=== PATIENT | female | born 1965 | race Caucasian/White ===

== ENCOUNTER 2025-08-06 07:55 | Emergency (ER) | payer OTHER ==
[~2025-08-06] VITALS: Ht 157.5 cm; Wt 65.4 kg
[2025-08-06] MEDS: ketorolac trometh 15mg/ml vial 15 MG/ML ML IM ONE (08:21)
--- NOTE | 2025-08-06 08:38 | Physician Documentation ---
History of Present Illness General Chief Complaint: Wrist pain Stated Complaint: FALL/WRIST PAIN Time Seen by MD: 08:33 History of Present Illness Initial Comments The patient is a 59-year-old female who states she was hanging up a bird feeder and she fell off a retaining wall breaking her fall with a right wrist and she presents with right wrist pain and deformity. Patient states her pain is 10/10. Patient states the pain is sharp. She denies any numbness or weakness to the distal hand. Patient denies any and all other injury. Patient's symptoms are moderate persistent. Medication Reconciliation Allergies: Coded Allergies: hydrocodone (Verified Allergy, Unknown, THROWING UP, 08/06/25) oxycodone (Verified Allergy, Unknown, THROWING UP, 08/06/25) Uncoded Allergies: STEROIDS (Allergy, Unknown, RASH AND ITCHY, 08/06/25) ALLERGY DOC TESTED Scheduled PRN Tramadol HCl (Tramadol HCl), 1 TAB PO Q6H PRN PRN for pain Past Medical History Past Medical History: No Pertinent History Review of Systems All Other Systems at this time: Reviewed and Negative Physical Exam Physical Exam Vital Signs: Temperature: 98.3, Source: Temporal, Heart Rate: 73, Respiratory Rate: 16, BP: 138/67, Pulse Oximetry: 96, Weight: 65.400 Oxygen Flow Rate: 0 Physical Exam VITALS: Reviewed and as above. GENERAL: Alert, no apparent distress. HEENT: Normocephalic, atraumatic, PERRL, EOMI, dry mucosa, no erythema RESPIRATORY: Lungs clear, normal breath sounds, no respiratory distress. CHEST: No accessory muscle use, no retractions CV: Regular rate, rhythm, no edema, no murmur, No: JVD GI: Soft, non-tender, bowels sounds present, no rebound, guarding, or rigidity BACK: No CVA tenderness, or swelling MUSCULOSKELETAL: Patient has a dorsal deformity of the distal forearm at the right wrist the hand is sensate and warm to touch. Her swelling and tenderness over the right wrist SKIN: Warm and dry, no rash NEURO: Oriented x4, No motor or sensory deficit PSYCH: Normal mood and affect, no agitation Progress Results/Orders Results/Orders Orders - CARMINE CEE MD Wrist, Complete (3vw Min) (08/06/25 08:15) Wrist,Limited (Ap/Lat) (08/06/25 ) Wrist,Limited (Ap/Lat) (08/06/25 12:06) Completed Orders - OHLFS,CARMINE Munoz MD Wrist, Complete (3vw Min) (08/06/25 08:15) Acetaminophen 325mg Tablet (Tylenol Tabl (08/06/25 08:15) Ketorolac Trometh 15mg/Ml Vial (Toradol (08/06/25 08:15) Propofol Inj (Diprivan Inj) (08/06/25 09:10) Ondansetron Inj. (Zofran 4mg/2ml Vial) (08/06/25 09:45) Wrist,Limited (Ap/Lat) (08/06/25 ) Tramadol Tablet (Ultram Tablet) (08/06/25 10:20) Tramadol Tablet (Ultram Tablet) (08/06/25 10:35) Lidocaine 1% W/Epi 1:100,000 (Xylocaine (08/06/25 10:50) Ondansetron Inj. (Zofran 4mg/2ml Vial) (08/06/25 11:41) Ondansetron Inj. (Zofran 4mg/2ml Vial) (08/06/25 11:45) Normal Saline 1000ml (0.9% Sodium Chlori (08/06/25 11:45) Wrist,Limited (Ap/Lat) (08/06/25 12:06) Vital Signs 08/06/25 08/06/25 08/06/25 08/06/25 08:07 08:21 08:35 09:57 Temp 98.3 Pulse 73 75 Resp 16 16 18 B/P (MAP) 138/67 Pulse Ox 96 97 O2 Delivery Nasal Cannula* O2 Flow Rate 0 2 FiO2 28 08/06/25 08/06/25 08/06/25 08/06/25 09:59 10:00 10:05 10:09 Pulse 85 79 77 Resp 18 24 13 24 B/P (MAP) 175/90 (118) 173/84 175/90 173/84 (113) Pulse Ox 96 96 96 O2 Delivery Nasal Cannula Room Air O2 Flow Rate 2.0 08/06/25 08/06/25 08/06/25 08/06/25 10:10 10:14 10:15 10:19 Pulse 74 85 72 72 Resp 18 13 14 10 B/P (MAP) 137/80 155/70 137/80 (99) Pulse Ox 97 97 94 96 O2 Delivery Room Air Room Air 08/06/25 08/06/25 08/06/25 08/06/25 10:20 10:24 10:25 10:28 Pulse 77 72 75 Resp 18 11 17 18 B/P (MAP) 150/69 159/82 (107) 152/98 Pulse Ox 98 99 97 O2 Delivery Room Air Room Air 08/06/25 08/06/25 08/06/25 08/06/25 10:28 10:28 10:29 10:31 Pulse 80 79 Resp 16 18 25 18 B/P (MAP) 157/79 (105) Pulse Ox 97 98 O2 Delivery Room Air 08/06/25 08/06/25 08/06/25 08/06/25 10:31 10:34 10:39 10:44 Pulse 20 71 69 73 Resp 19 20 11 27 B/P (MAP) 152/98 (116) 157/79 (105) 152/76 (101) Pulse Ox 99 97 99 97 O2 Delivery Room Air 08/06/25 08/06/25 08/06/25 08/06/25 10:49 10:51 10:54 10:59 Pulse 80 79 74 Resp 18 18 18 23 B/P (MAP) 153/75 (101) 145/80 (101) 166/87 (113) Pulse Ox 98 96 99 08/06/25 08/06/25 08/06/25 08/06/25 11:04 11:09 11:14 12:37 Temp 98.0 Pulse 79 71 77 74 Resp 23 22 25 15 B/P (MAP) 170/87 (114) 165/84 (111) 152/83 (106) 146/88 Pulse Ox 96 97 97 98 EKG/XRAY/CT/US/VASC/MRI Bone/Soft Tissue X-Ray (Ext.) : Additional Comment Patient: JOE MONTANO Medical Record: [id number] : 1965, Age: 59 Sex: Female Location: ER Patient Status: REG ER Service Date/Time: 08/06/25814 Ordering Physician: CARMINE CEE MD Exam: WRIST, COMPLETE (3VW MIN) DI WRIST, COMPLETE (3VW MIN), INDICATION: WRIST PAIN TECHNICAL DATA: Frontal oblique and lateral views were obtained of the right wrist. COMPARISON: None FINDINGS: Comminuted, angulated distal radius fracture. Joint spaces are maintained. Alignment is anatomic. Ulnar variance is positive. Soft tissues are within normal limits. IMPRESSION: Comminuted, angulated distal radius fracture. Electronically Signed by:ANT DE LOS SANTOS MD Date & Time: 08/06/25835 Dictated by: ANT DE LOS SANTOS MD Dictation date and time: 08/06/25835 Primary Care Provider: NO PRIMARY CARE PROVIDER cc: CARMINE CEE MD ~ Medical Decision Making Findings The patient presents with a distal radius fracture. The patient was consciously sedated after informed consent was obtained and the fracture was reduced utilizing propofol, the intraservice time was 10 minutes the patient is ASA class was one she was a Mallampati one, there were no complications. The reduction was of adequate so the patient received a 10 mL hematoma block into the fracture of 1% lidocaine with epinephrine. She was hung in finger traps and we reduced. With good alignment. Case has been discussed with Dr. Estrella. All images has been reviewed. I independently interpreted her plain film x-rays as showing a distal impacted and angulated distal radius fracture with some soft tissue swelling and no dislocation. I have reviewed all the radiologist's interpretations the patient remained neurovascularly intact she will be discharged on tramadol patient tolerated the procedure well. Prior hospitalizations has been reviewed. 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 interpreted as a sinus rhythm and her pulse oximetry was interpreted as normal and adequate Departure Impression: Primary Impression: Distal radius fracture, right Qualified Codes: S52.531A - Colles' fracture of right radius, initial encounter for closed fracture Discharge Instructions: Wrist Fracture Treated With Immobilization Referrals: NO PRIMARY CARE PROVIDER (PCP) ARIEL ESTRELLA Jr., MD Prescriptions Tramadol HCl (Tramadol HCl) 50 Mg Tablet 1 TAB PO Q6H PRN PRN for pain, #21 TAB Prov: CARMINE CEE MD 08/06/25 Signature Scribe Signature: no scribe Attestation: The note accurately reflects work and decisions made by me.Carmine Cee MD 08/09/25 12:09 CARMINE CEE MD Aug 06, 2025 08:37
[2025-08-06 09:57] VITALS: PULSE 75; RESP 18; O2SAT 97
[2025-08-06] MEDS: ondansetron/PF 4mg/2ml inj IV ONE ×2 (09:58→11:47)
[2025-08-06] MEDS: propofol 10mg/ml 20ml vial IV ONE (10:03)
--- NOTE | 2025-08-06 10:57 | RADIOLOGY REPORT ---
DI WRIST,LIMITED (AP/LAT), INDICATION: post reduction TECHNICAL DATA: Frontal ,oblique and lateral views were obtained of the right wrist. COMPARISON: DI WRIST, COMPLETE (3VW MIN) on DOS: 08/06/25 FINDINGS: Comminuted and impacted distal radius fracture. Joint spaces are maintained. Alignment is anatomic. U lnar variance is positive. Soft tissues are within normal limits. IMPRESSION: Comminuted and impacted distal radius fracture.
[2025-08-06] MEDS: LIDOcaine 1% W/epiNEPHrine 1:100,000 20ml vial IJ ONE (11:38)
[2025-08-06] MEDS: ondansetron/PF 4mg/2ml inj ONE (11:46)
[2025-08-06] MEDS: normal saline 1000ML IV soln IVB ONE (11:48)
[2025-08-06] MEDS ORDERED: TRAM50TA2 PO (12:21)
[2025-08-06 12:37] VITALS: BP 146/88; PULSE 74; RESP 15; TEMP 98; O2SAT 98
--- NOTE | 2025-08-06 13:59 | RADIOLOGY REPORT ---
EXAM: DI WRIST,LIMITED (AP/LAT) CLINICAL INDICATION: post reduction TECHNIQUE: DI WRIST,LIMITED (AP/LAT) Comparison: DI WRIST,LIMITED (AP/LAT) on DOS: 08/06/25, DI WRIST, COMPLETE (3VW MIN) on DOS: 08/06/25 FINDINGS/IMPRESSION: Improved anatomic alignment status post reduction of distal radial fracture. Overlying fiberglass ca st obscures fine bony detail.
== END 2025-08-06 12:39 | disposition home or self-care (01) ==
LOC: ER 07:56
DX: S52.501A Unspecified fracture of the lower end of right radius, initial encounter for closed fracture (principal); Z88.5 Allergy status to narcotic agent; W13.8XXA Fall from, out of or through other building or structure, initial encounter; Y93.89 Activity, other specified; Y92.89 Other specified places as the place of occurrence of the external cause; Y99.8 Other external cause status
CPT/HCPCS: 25605; 73100; 73110; 96361; 96372; 96374; 96376; 99152; 99285; J1885; J2405; J2704; J3490; J7030; 94760; A4620; A6449